=== PATIENT | female | born 1950 | race Caucasian/White ===

== ENCOUNTER 2017-02-23 22:47 | Emergency (ER) | payer MEDICARE, OTHER ==
[~2017-02-23] VITALS: Ht 152.4 cm; Wt 67.0 kg
[2017-02-23 22:52] VITALS: Ht 152.4 cm; Wt 67.0 kg
[2017-02-23 23:30] VITALS: BP 130/72; PULSE 60; RESP 16; TEMP 97
[2017-02-23] MEDS ORDERED: SOD CHLORIDE 0.9% 1,000 ML IV STA (23:50)
[2017-02-23] MEDS ORDERED: ONDANSETRON 4 MG INJ IV STA (23:50)
[2017-02-23] MEDS ORDERED: HYDROmorphONE 1 MG/ML SYG IV STA (23:50)
[2017-02-23] MEDS ORDERED: FAMOTIDINE 20 MG INJ IV STA (23:50)
[2017-02-23] MEDS ORDERED: LIDOCAINE/MYLANTA 40 ML BTL PO STA (23:50)
--- NOTE | 2017-02-24 00:33 | ERD ---
ER Documentation Chief Complaint Chief Complaint worsened RUQ ABD PAIN X3 DAYS. HX GALLSTONES +N/V HPI This is 66-year-old female who is at 4 months of upper abdominal pain after eating. The patient states she gets a burning sensation after eating all have nausea vomiting. The patient had a EGD that did not show any gastric problems. She said she had an ultrasound also that was normal. She is scheduled to have a HIDA scan of her gallbladder but has not yet. She is taking Protonix and sucralfate for her stomach but does not help. She is eating very little because she is scared to eat because she will get pain in her vomit. The pain is burning and nonradiating. No chest pain shortness of breath. No diarrhea no abdominal pain ROS All systems reviewed and are negative except as per history of present illness. Medications Home Meds Active Scripts Hydrocodone/Acetaminophen ([place] 10-325 Tablet) 1 Each Tablet, 1 TAB PO Q6H Y for PAIN, #20 TAB Prov:KRISTINA ALMEIDA DO 02/24/17 Lidocaine (Lidocaine Viscous) 100 Ml Soln, 15 ML MM BEFORE MEALS, #200 Prov:KRISTINA ALMEIDA DO 02/24/17 Reported Medications Pantoprazole* (Pantoprazole*) 40 Mg Tablet.dr, 40 MG PO DAILY, TAB 02/24/17 Sucralfate* (Carafate*) 1 Gm Tab, 1 GM PO QID, TAB 02/24/17 Nifedipine* (Nifedipine ER*) 30 Mg Tablet.sa, 30 MG PO DAILY, TAB.SA 02/24/17 Olmesartan/Hydrochlorothiazide (Olmesartan-Hctz 40-25 mg Tab) 1 Each Tablet, 1 EACH PO, TAB 02/24/17 Atenolol* (Atenolol*) 50 Mg Tablet, 50 MG PO DAILY, #30 TAB 02/24/17 Allergies Allergies: Coded Allergies: morphine (Unverified Allergy, Severe, VOMITING; DIZZINESS, 02/24/17) FmHx Family History: No coronary disease Physical Exam Vitals Vital Signs Date Time Temp Pulse Resp B/P Pulse Ox O2 Delivery O2 Flow Rate FiO2 02/23/17 22:52 97.0 65 20 129/63 94 Physical Exam Const: Well-developed, well-nourished Head: Atraumatic, normocephalic Eyes: Normal Conjunctiva, PERRLA, EOMI, normal sclera, no nystagmus ENT: Normal External Ears, Nose and Mouth, moist mucus membranes. Neck: Full range of motion. No meningismus, no lymphadenopathy. Resp: Clear to auscultation bilaterally, no wheezing, rhonchi, rales Cardio: Regular rate and rhythm, no murmurs, S1 S2 present Abd: Soft, diffuse upper abdominal tenderness mostly in the epigastric region, non distended. Normal bowel sounds, no guarding or rebound, no pulsitile abdominal masses or bruits Skin: No petechiae or rashes, no ecchymosis , no maculopapular rash Back: No midline or flank tenderness Ext: No cyanosis, or edema, FROM x 4, normal inspection, neurovascularly intact x 4 Neur: Awake and alert, STR 5/5 x 4, sensation intact x 4, no focal findings, cerebellum intact Psych: Normal Mood and Affect Result Diagram: 02/24/17 0010 02/24/17 0010 Results 24 hrs Laboratory Tests Test 02/24/17 00:10 White Blood Count 6.810^3/ul Red Blood Count 3.4110^6/ul Hemoglobin 10.2g/dl Hematocrit 31.2% Mean Corpuscular Volume 91.5fl Mean Corpuscular Hemoglobin 29.9pg Mean Corpuscular Hemoglobin Concent 32.7g/dl Red Cell Distribution Width 13.0% Platelet Count 62874^3/UL Mean Platelet Volume 11.2fl Neutrophils % 48.8% Lymphocytes % 42.5% Monocytes % 7.1% Eosinophils % 0.9% Basophils % 0.6% Nucleated Red Blood Cells % 0.0/100WBC Neutrophils # 3.310^3/ul Lymphocytes # 2.910^3/ul Monocytes # 0.510^3/ul Eosinophils # 0.110^3/ul Basophils # 0.010^3/ul Nucleated Red Blood Cells # 0.010^3/ul Sodium Level 141mmol/L Potassium Level 3.9mmol/L Chloride Level 104mmol/L Carbon Dioxide Level 30mmol/L Anion Gap 11 Blood Urea Nitrogen 11mg/dl Creatinine 0.80mg/dl Glucose Level 101mg/dl Calcium Level 8.2mg/dl Total Bilirubin 0.3mg/dl Direct Bilirubin 0.00mg/dl Indirect Bilirubin 0.3mg/dl Aspartate Amino Transf (AST/SGOT) 16IU/L Alanine Aminotransferase (ALT/SGPT) 26IU/L Alkaline Phosphatase 69IU/L Total Protein 5.9g/dl Albumin 3.1g/dl Globulin 2.80g/dl Albumin/Globulin Ratio 1.10 Lipase 32U/L Current Medications Medications (Trade) Dose Ordered Sig/Alda Route PRN Reason Start Time Stop Time Status Last Admin Dose Admin Sodium Chloride (NS) 1,000 ml @ 1,000 mls/hr Q1H STAT IV 02/23/17 23:50 02/24/17 00:49 DC 02/24/17 00:48 Hydromorphone HCl (Dilaudid) 1 mg ONCE STAT IV 02/23/17 23:50 02/23/17 23:52 DC 02/24/17 00:48 Ondansetron HCl (Zofran Inj) 4 mg ONCE STAT IV 02/23/17 23:50 02/23/17 23:52 DC 02/24/17 00:48 Famotidine (Pepcid Iv) 20 mg ONCE STAT IV 02/23/17 23:50 02/23/17 23:52 DC 02/24/17 00:48 Miscellaneous Medication (Gi Cocktail (2)) 40 ml ONCE STAT PO 02/23/17 23:50 02/23/17 23:52 DC 02/24/17 00:48 Procedures/MDM PROCEDURE: Abdominal ultrasound, limited. CLINICAL INDICATION: Abdominal pain. TECHNIQUE: Multiple real-time images were acquired of the patient's right upper abdomen utilizing a high resolution transducer. COMPARISON: None FINDINGS: The liver demonstrates normal echogenicity and size measuring 17.4 cm. There is no focal mass or intrahepatic biliary ductal dilatation. The portal vein is patent. The gallbladder is not distended. No gallstones are identified. There is no pericholecystic fluid or gallbladder wall thickening. The common bile duct measures 4.5 mm in maximal dimension. The pancreas is obscured by overlying bowel gas. No free fluid is identified. The right kidney is normal size and echogenicity measuring 10.1 cm. There is no focal renal mass or echogenic calculus identified. There is no obstructive uropathy. IMPRESSION: Pancreas obscured by overlying bowel gas. Otherwise unremarkable right upper abdominal ultrasound. .Beny Van MD, MD Date Time Electronically viewed and signed by .Beny Van MD, MD on 02/24/2017 00:46 .T/ CC: KRISTINA ALMEIDA DO Patient's blood work looks good. Ultrasound exam unremarkable. Patient's symptoms are consistent with gastritis or peptic ulcer disease. She says she feels much better after GI cocktail. An extensive discussion with her and reviewed proper diet care as well as how to take her medications. We will provide her with some viscous lidocaine and she will follow-up with her GI doctor Departure Diagnosis: Primary Impression: Gastritis Gastritis type: unspecified gastritis Chronicity: acute Gastritis bleeding : presence of bleeding unspecified Qualified Code: K29.00 - Acute gastritis, presence of bleeding unspecified, unspecified gastritis type Condition: Stable KRISTINA ALMEIDA DO Feb 24, 2017 00:33
--- NOTE | 2017-02-24 00:46 | RADRPT ---
PROCEDURE: Abdominal ultrasound, limited. CLINICAL INDICATION: Abdominal pain. TECHNIQUE: Multiple real-time images were acquired of the patient's right upper abdomen utilizing a high resolution transducer. COMPARISON: None FINDINGS: The liver demonstrates normal echogenicity and size measuring 17.4 cm. There is no focal mass or in trahepatic biliary ductal dilatation. The portal vein is patent. The gallbladder is not distended. No gallstones are identified. There is no pericholecystic fluid or gallbladder wall thickening. T he common bile duct measures 4.5 mm in maximal dimension. The pancreas is obscured by overlying bow el gas. No free fluid is identified. The right kidney is normal size and echogenicity measuring 10.1 cm. There is no focal renal mass or echogenic calculus identified. There is no obstructive uropathy. IMPRESSION: Pancreas obscured by overlying bowel gas. Otherwise unremarkable right upper abdominal ultrasound. .Beny Van MD, MD Date Time Electronically viewed and signed by .Beny Van MD, on 02/24/2017 00:46 .T/
[2017-02-24] MEDS ORDERED: OLME1TAB PO (01:42)
[2017-02-24] MEDS ORDERED: ATEN50TA PO (01:42)
[2017-02-24] MEDS ORDERED: NIFE30TA60 PO (01:42)
[2017-02-24] MEDS ORDERED: PANT40TA4 PO (01:42)
[2017-02-24] MEDS ORDERED: SUCR1TAB56 PO (01:42)
[2017-02-24] MEDS ORDERED: HYDR-902 PO (01:54)
[2017-02-24] MEDS ORDERED: LIDO20SO19 MM (01:54)
== END 2017-02-24 02:30 | disposition home or self-care (01) ==
LOC: E/R 22:47
DX: K29.00 Acute gastritis without bleeding (principal)
CPT/HCPCS: 36415; 76705; 80053; 83690; 85025; 96374; 96375; 99285; J1170; J2405; J7030